=== PATIENT | male | born 1975 | race Caucasian/White ===

== ENCOUNTER 2023-04-20 13:46 | Emergency (ER) | payer OTHER, SELFPAY ==
--- NOTE | 2023-04-20 13:48 | ED.GENADULT ---
HPI - General Adult General Chief complaint: Overdose Stated complaint: OVERDOSE Time Seen by Provider: 04/20/23 13:54 Source: patient and EMS Mode of arrival: EMS Limitations: no limitations History of Present Illness HPI narrative: 47 year old male present via EMS s/p accidental heroin OD. Patient sniffed 1/2 bag of heroin from unknown person on the bus, he is on methadone. States he has not been using lately. No SI or HI. Slight headache diffuse no visual changes or dizziness. No trauma. Denies CP, SOB, nausea, vomiting, dizziness, vision changes. Patient got 2 4 mg intranasal narcan by PD. Related Data Previous Rx's Medication Instructions Recorded naloxone 4 mg/actuation nasal 4 mg intranasal Q2M PRN opioid 04/20/23 spray (Narcan) overdose #2 ea Allergies Allergy/AdvReac Type Severity Reaction Status Date / Time Penicillins [PENICILLINS] Allergy Unknown HIVES Unverified 05/06/20 15:17 Review of Systems Review of Systems: Constitutional : No Weight loss, No Fever, No Chills, No Fatigue, No Malaise ENT/Mouth : No sore throat, No Rhinorrhea Eyes: No Eye Pain, No Swelling, No Redness Cardiovascular : No Chest Pain, No SOB, No Dyspnea on Exertion, No Orthopnea, No Edema, No Palpitations Respiratory : No Cough, No Sputum, No Wheezing Gastrointestinal : No Nausea, No Vomiting, No Diarrhea, No Constipation, No abdominal Pain, No Hematochezia, No Melena Genitourinary : No Dysuria, No Urinary Frequency, No Hematuria, Musculoskeletal : No joint pain, No Myalgias, No Joint Swelling Skin : No Skin Lesions, No rash Neuro : No Weakness, No Numbness, No Dizziness, + Headache Psych : No Anxiety/Panic, No Depression All other systems reviewed and are negative Yes all other systems are reviewed and are negative [facility] Past Medical History Attestation statement: The following information was validated with the patient. Source: old records reviewed and nursing notes reviewed Social History Social History Advance Directives: No Physical Exam ED Vital Signs: Vital Signs - 24 hr 04/20/23 13:58 Pulse Rate 107 H Respiratory Rate 18 Blood Pressure 122/86 Pulse Oximetry 98 BMI result Body Mass Index 30.1 vss Appearance: Alert.? Oriented X3.? No acute distress.? Head: Normocephalic, atraumatic, no step-offs or deformities Eyes: Pupils equal, round and reactive to light.? CVS: Normal heart rate and rhythm.? Pulses normal.? Respiratory: No respiratory distress.? Breath sounds normal.? Abdomen: Soft and nontender.? Skin: Skin warm and dry.? Normal skin color.? Normal skin turgor.? Extremities: No lower extremity edema.? No calf ttp. 5/5 strength to bilateral upper and lower extremities Neuro: Oriented X 3.? No motor deficit.? No sensory deficit. CN 2-12 intact . Normal [id number], [id number]. Steady tandem gait normal coordination. Negative Romberg pronator drift Course Reevaluation(s) Reevaluation #1: Patient eloped from the department Time: 14:33 Medical Decision Making Medical Decision Making [facility] Narrative: 1350 47-year-old male presents status post accidental overdose after sniffing have a bag of heroin no SI or HI . Some complaints of headache. Physical exam benign Likely accidental overdose. No signs of trauma to head, neck, chest, abdomen or pelvis and patient was found sitting down. Unlikely metabolic derangements. Possible polysubstance abuse. Headache likely secondary to narcan unlikely ICH, stroke, posterior stroke Plan medical clearance, substance use disorder evaluation. Differential Diagnosis Differential Diagnoses: The differential diagnosis associated with the presentation includes Likely accidental overdose. No signs of trauma to head, neck, chest, abdomen or pelvis and patient was found sitting down. Unlikely metabolic derangements. Possible polysubstance abuse. Headache likely secondary to narcan unlikely ICH, stroke, posterior stroke Admission/Observation Consideration of admission/observation: Escalation of care including admission/observation considered Unlikely Consult Healthcare Provider Management of the patient was discussed with: Behavioral Health Provider Tests considered The following testing was considered but not selected: No trauma no need for imaging. Neuro nonfocal. No need for labs, unlikely metabolic derangements. Core Measures AMI core measures followed: Yes Measure exclusions: not indicated Critical Care Time Critical Care Time Critical Care Time: No Discharge Plan Discharge Clinical Impression: Opiate overdose Patient Disposition: Home, Self-Care Additional Instructions: Take your medications as prescribed. If you were prescribed antibiotics today, it is important that you take your medication to their entirety, do not skip any doses, do not finish them early. Follow-up with your primary care provider this week. Return to the emergency department with new or worsening symptoms. Such as fevers, chills, chest pain, shortness of breath, nausea, vomiting, dizziness, headache, vision changes, lethargy In case of emergency call 911 Narcan has been sent to your preferred pharmacy [facility] Prescriptions: New naloxone [Narcan] 4 mg/actuation spray,non-aerosol 4 mg intranasal Q2M PRN (Reason: opioid overdose) Qty: 2 0RF Rx Instructions: spray 1 dose into ONE nostril; alternate nostrils w each dose until help arrives Referrals: Aminata Delvalle MD [Primary Care Provider] - 2 days Stand Alone Forms: Work/School Release Interventions: ED Discharge Assessment Last Done: 04/20/23 14:26 Discharge Date/Time: 04/20/23 14:15
[2023-04-20 13:51] VITALS: BP 162/94; PULSE 130; O2SAT 100
[2023-04-20 13:58] VITALS: BP 122/86; PULSE 107; RESP 18; O2SAT 98; BMI 30.1
== END 2023-04-20 14:15 | disposition home or self-care (01) ==
PROVIDERS: Emergency Provider Emergency Medicine; PCP Internal Medicine
DX: T40.1X1A Poisoning by heroin, accidental (unintentional), initial encounter (principal); Y92.9 Unspecified place or not applicable; Z71.51 Drug abuse counseling and surveillance of drug abuser
CPT/HCPCS: 99282

== ENCOUNTER 2023-07-12 18:13 | Emergency (ER) | payer OTHER, SELFPAY ==
--- NOTE | 2023-07-12 18:26 | ED.ABDPAIN ---
HPI - Abdominal Pain General Chief Complaint: Overdose Stated Complaint: OD, 4MG NARCAN GIVEN Time Seen by Provider: 07/12/23 18:25 Source: patient Mode of arrival: EMS Limitations: no limitations History of Present Illness HPI narrative: Patient comes to the emergency room complaining of a heroin overdose. Patient states that he takes methadone every day. But over the last few weeks, he does not know why he restarted using drugs. Patient denies drinking alcohol, denies any trauma. According to EMS, patient received 4 mg of intranasal Narcan and patient woke up immediately. Patient arrived to the Emergency alert and oriented x3. Patient admits to using drugs. Patient is adamant that he is not suicidal, denies HI Related Data Home Medications Medication Instructions Recorded Confirmed atorvastatin 10 mg tablet 10 mg PO DAILY 07/12/23 07/12/23 quetiapine 100 mg tablet 100 mg PO BEDTIME 07/12/23 07/12/23 Allergies Allergy/AdvReac Type Severity Reaction Status Date / Time Penicillins [PENICILLINS] Allergy Unknown HIVES Verified 07/12/23 19:28 Review of Systems Review of Systems Constitutional : No Weight loss, No Fever, No Chills, No Night Sweats, No Fatigue, No Malaise ENT/Mouth : No Hearing loss, No Ear Pain, No Nasal Congestion, No Sinus Pain, No Hoarseness, No sore throat, No Rhinorrhea, No Swallowing Difficulty Eyes: No Eye Pain, No Swelling, No Redness, No Foreign Body, No Discharge, No Vision Changes Cardiovascular : No Chest Pain, No SOB, No Dyspnea on Exertion, No Orthopnea, No Edema, No Palpitations Respiratory : No Cough, No Sputum, No Wheezing, No Smoke Exposure, No Dyspnea Gastrointestinal : No Nausea, No Vomiting, No Diarrhea, No Constipation, No abdominal Pain, No Hematochezia, No Melena Genitourinary : no irregular bleeding, No Dysuria, No Urinary Frequency, No Hematuria, No Urinary Incontinence, No Urgency, No Flank Pain, No Urinary Flow Changes, No Hesitancy Musculoskeletal : No joint pain, No Myalgias, No Joint Swelling Skin : No Skin Lesions, No rash Neuro : No Weakness, No Numbness, No Paresthesias, No Loss of Consciousness, No Dizziness, No Headache Psych : No Anxiety/Panic, No Depression, No SI/HI/AH/VH, admits to accident overdose Heme/Lymph: No Bruising, No Bleeding,No Lymphadenopathy Endocrine : No Polyuria, No Polydipsia, No Temperature Intolerance PENDING SALE TO [facility] Past Medical History Medical History Overdose Polysubstance abuse Social History Alcohol intake: current Alcohol intake frequency: holidays/special occasions only Smoked in Last 30 Days: Yes Use of substances other than those prescribed or required for medical reasons: Yes Substance Use Type: Heroin and Marijuana Substance Use Frequency: Chronic Longstanding Last Used Substance: Just Prior to Admission Any prior treatment program specific to substance use: Yes Advance Directives: No Physical Exam ED Vital Signs: Vital Signs - 24 hr 07/12/23 18:30 07/12/23 19:37 Temperature 97.9 F 98.2 F Pulse Rate 100 91 Respiratory Rate 18 12 Blood Pressure 145/90 H 118/75 Pulse Oximetry 94 Oxygen Delivery Method Room Air Room Air BMI result Body Mass Index 32.1 Const Other: Appearance: Alert. Oriented X3. No acute distress. Eyes: Pupils equal, round and reactive to light. ENT: Pharynx normal. Neck: Normal inspection. Neck supple. No lymph nodes noted. No crepitus CVS: Normal heart rate and rhythm. Pulses normal. Normal S1 and S2 Respiratory: No respiratory distress. Breath sounds normal. No Wheezing. No rales Abdomen: Soft and nontender. No rigidity. No distention. Skin: Skin warm and dry. Normal skin color. Normal skin turgor. Extremities: No lower extremity edema. No Lacerations. No Rash Neuro: Oriented X 3. No motor deficit. No sensory deficit. Moving all extremities. No slurred speech. CN 2 through 12 grossly intact Psych: calm, cooperative, normal affect Medical Decision Making Medical Decision Making MDM Narrative: -patient's vital stable, oxygen saturation 97% on room air. -discussed with the patient that he will be monitored for couple of hours. If his vitals are stable, patient is physically well and sober to be discharged, he will be sent home afterwards. Patient agrees with plan -physician observation started at 18:45 -as patient sobered up and he was ready to be discharged, suddenly patient became suicidal without a plan -my interpretation of labs: White blood cell count elevated, likely reactive leukocytosis, chemistry no obvious abnormality, ETOH negative, urinalysis and U tox pending -care team consult pending -physician observation started at 20:00 Differential Diagnosis Differential Diagnoses: The differential diagnosis associated with the presentation includes (Alcohol abuse, polysubstance abuse, anxiety, depression) Admission/Observation Consideration of admission/observation: Escalation of care including admission/observation considered (Patient waiting to be seen by the care team patient will remain under observation until his disposition is determined by the care team) Lab Data MDM Lab Attestation statement: I reviewed the patient's lab results. 07/12/23 20:16 07/12/23 20:16 Labs: Lab Results 07/12/23 Range/Units 20:16 WBC 13.6 H (4.8-10.8) X10*3/uL RBC 4.63 (4.60-5.80) X10*6/uL Hgb 14.4 (14.0-18.0) g/dl Hct 41.8 L (42.0-52.0) % MCV 90.3 (80.0-98.0) fL MCH 31.1 (27.0-33.0) pg MCHC 34.4 (31.0-36.0) g/dl RDW 12.4 (11.0-16.0) % Plt Count 236 (160-400) X10*3/uL MPV 9.6 (9.4-12.4) fL Immature Gran % (Auto) 0.5 H (0.0-0.4) % Neut % (Auto) 83.3 H (45-73) % Lymph % (Auto) 10.1 L (20-40) % Dickson % (Auto) 5.4 (2-11) % Eos % (Auto) 0.3 (0-4) % Baso % (Auto) 0.4 (0-2) % Lymph # (Auto) 1.4 (1.2-4.9) X10*3/uL Dickson # (Auto) 0.7 (0.1-1.2) X10*3/uL Eos # (Auto) 0.0 (0.0-0.4) X10*3/uL Baso # (Auto) 0.1 (0.0-0.2) X10*3/uL Abs Immat Gran (auto) 0.07 H (0.00-0.03) X10*3/uL Absolute Neuts (auto) 11.3 H (2.0-8.3) x10*3/uL Absolute Nucleated RBC 0.000 (0.0-0.012) X10*3/uL Nucleated RBC % (auto) 0.0 (0.0-0.2) /100WBC Sodium 142 (135-145) mmol/L Potassium 4.8 (3.3-5.1) mmol/L Chloride 107 (96-108) mmol/L Carbon Dioxide 25 (22-29) mmol/L Anion Gap 15 (12-20) BUN 14 (9-16) mg/dL Creatinine 1.14 (0.5-1.4) mg/dL Estim Creat Clear Calc 99.6 Estimated GFR > 60 Random Glucose 117 H (60-115) mg/dL Calcium 10.4 H (8.4-10.2) mg/dL Total Bilirubin 0.4 (0.0-1.0) mg/dL AST 31 (5-37) U/L ALT 43 H (0-40) U/L Alkaline Phosphatase 62 (39-117) U/L Total Protein 8.1 H (6.5-8.0) g/dL Albumin 4.9 (3.5-5.0) g/dL Ethyl Alcohol < 10 mg/dL Critical Care Time Critical Care Time Critical Care Time: Yes Total Critical Care Time: 30 Attestation: I have personally provided critical care time. Time includes review of lab data, radiology results, discussion with consultants, and monitoring for potential decompensation. Intervention performed as documented. Discharge Plan Discharge Clinical Impression: Accidental overdose, Suicidal ideation Patient Disposition: Still a Patient Prescriptions: No Action atorvastatin 10 mg tablet 10 mg PO DAILY quetiapine 100 mg tablet 100 mg PO BEDTIME
[2023-07-12 18:29] VITALS: BP 153/77; PULSE 110; O2SAT 97
[2023-07-12 18:30] VITALS: BP 145/90; PULSE 100; RESP 18; TEMP 36.6
[2023-07-12 19:28] VITALS: BMI 32.1
[2023-07-12 19:37] VITALS: BP 118/75; PULSE 91; RESP 12; TEMP 36.8; O2SAT 94
--- NOTE | 2023-07-12 19:37 | PC.NURSE ---
a&ox3, vss and up to date at this time. 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 pt biba d/t intentional overdose. per pt - pt is SI at this time and ingested 1 bag of heroin intranasally. states he has been sober for 5 years/on methadone and relapsed today. pt verbalizes that nothing in his life is right at this time. denies HI. 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 pt changed into hospital attire. belongings in decon. pt c/o 8/10 headache, n/dizziness/sob at this time. pt able to speak in full/clear sentences w/o difficulty. no sob/wob noted at this time. lung sounds clear throughout. respirations even and unlabored. pt switching from 21 to 18 so sitter can be present.
--- NOTE | 2023-07-12 19:43 | PC.NURSE ---
pt in room 18 at this time. 1:1 sitter present.
[2023-07-12 20:21] LABS: Basophils Absolute Auto 0.1 X10*3/uL (0.0-0.2); Basophils Percent Auto 0.4 % (0-2); Eosinophils Percent Auto 0.3 % (0-4); Hematocrit 41.8 % (42.0-52.0); Hemoglobin 14.4 g/dl (14.0-18.0); Imm Gran Abs Auto 0.07 X10*3/uL (0.00-0.03); Imm Gran Pct Auto 0.5 % (0.0-0.4); Lymphocytes Absolute Auto 1.4 X10*3/uL (1.2-4.9); Lymphocytes Percent Auto 10.1 % (20-40); MANUAL DIFF FLAG NO; Mean Corpuscular HGB Conc 34.4 g/dl (31.0-36.0); Mean Corpuscular Hemoglobin 31.1 pg (27.0-33.0); Mean Corpuscular Volume 90.3 fL (80.0-98.0); Mean Platelet Volume 9.6 fL (9.4-12.4); Monocytes Absolute Auto 0.7 X10*3/uL (0.1-1.2); Monocytes Percent Auto 5.4 % (2-11); Neutrophils Absolute Auto 11.3 x10*3/uL (2.0-8.3); Neutrophils Percent Auto 83.3 % (45-73); Platelet Count 236 X10*3/uL (160-400); Red Blood Count 4.63 X10*6/uL (4.60-5.80); Red Cell Distribution Width 12.4 % (11.0-16.0); White Blood Count 13.6 X10*3/uL (4.8-10.8)
[2023-07-12 20:34] LABS: Alanine Aminotransferase 43 U/L (0-40); Albumin Level 4.9 g/dL (3.5-5.0); Alkaline Phosphatase 62 U/L (39-117); Anion Gap 15 (12-20); Aspartate Amino Transferase 31 U/L (5-37); Bilirubin Total 0.4 mg/dL (0.0-1.0); Blood Urea Nitrogen 14 mg/dL (9-16); Calcium 10.4 mg/dL (8.4-10.2); Carbon Dioxide 25 mmol/L (22-29); Chloride 107 mmol/L (96-108); Creatinine Clr Calc Pharmacy 99.6; Estimated Glomerular Filt Rate > 60; Glucose Random 117 mg/dL (60-115); Potassium 4.8 mmol/L (3.3-5.1); Sodium 142 mmol/L (135-145); Total Protein 8.1 g/dL (6.5-8.0)
[2023-07-12 20:37] LABS: Ethanol < 10 mg/dL
[2023-07-12] MEDS: QUEtiapine Fumarate 100 MG TABLET PO (21:11)
[2023-07-12 21:27] LABS: Appearance Urine Clear; Color Urine Yellow; Glucose Urine UA Negative (Negative); Leukocyte Esterase Urine Negative (Negative); Nitrite Urine Negative (Negative); PH 5.5 (5.0-9.0); Urine Blood Negative (Negative); Urine Ketones Negative (Negative); Urine Protein Negative (Neg-Trace)
[2023-07-12 21:32] LABS: Amphetamine Screen Urine Not Detected (Not Detect); Barbiturates, Urine Not Detected (Not Detect); Benzodiazepines Screen Urine Not Detected (Not Detect); Cannabinoid Screen Urine POSITIVE (Not Detect); Cocaine Screen Urine POSITIVE (Not Detect); Fentanyl, urine POSITIVE (Not Detect); Opiate Screen Urine POSITIVE (Not Detect); Phencyclidine Screen Urine Not Detected (Not Detect)
--- NOTE | 2023-07-13 06:34 | PC.NURSE ---
Patient slept through the night, no distress observed/reported, behavior non concerning, medication compliant, patient was assessed by care team, disposition pending, patient will be re-evaluated in the morning, labs completed/resulted, will continue to monitor.
[2023-07-13] MEDS: Atorvastatin Calcium 10 MG TABLET PO (08:17)
[2023-07-13] MEDS: methADONE HCl 20 MG/2 ML ORAL.CONC 30 MG PO (10:16)
--- NOTE | 2023-07-13 14:15 | MHC.CARE ---
Pt declined at [facility] due to methadone access on the weekend.Pt requested to be discharged and follow up [facility] in the community. Pt placed on alert with [facility].
[2023-07-13 14:46] VITALS: BP 110/71; PULSE 77; RESP 18; TEMP 36.5; O2SAT 92
== END 2023-07-13 15:22 | disposition home or self-care (01) ==
PROVIDERS: Emergency Provider Emergency Medicine; PCP Internal Medicine
DX: T40.1X1A Poisoning by heroin, accidental (unintentional), initial encounter (principal); Y92.9 Unspecified place or not applicable; R45.851 Suicidal ideations; F19.10 Other psychoactive substance abuse, uncomplicated; Z79.899 Other long term (current) drug therapy
CPT/HCPCS: 36415; 80053; 80307; 81003; 85025; 99285; S9485